=== PATIENT | female | born 1960 ===

== ENCOUNTER → 2020-08-10 07:46 | Outpatient (CLI) | payer OTHER, SELFPAY ==
--- NOTE | ~2020-08-10 | US_ITS ---
EXAMINATION: US right upper quadrant EXAM DATE: 08/10/2020 08:09 INDICATION: Epigastric pain TECHNIQUE: Multiple grayscale and Doppler images of the abdomen right upper quadrant were obtained (b y a technologist who performed the scan) and subsequently reviewed. There is no prior study for josue dodd. FINDINGS: The pancreatic head and body are normal in appearance. The pancreatic tail is not visualized. The l iver has normal echogenicity and contour. There are no focal liver lesions identified. There is no evidence of intrahepatic biliary duct dilation. Portal venous flow was seen in the hepatopedal, nor mal direction and has normal Doppler waveform. No right-sided hydronephrosis. Common bile duct measures 7 mm, which is normal. The gallbladder wall is normal in thickness, with ex pected amount of distention. No sonographic evidence of pericholecystic fluid. There is wall echo s hadow appearance from Stone filled gallbladder. Technologist performing exam reports patient did not demonstrate sonographic Perry's sign. Please note that this sign is less reliable in patients who have received pain medication. IMPRESSION: 1. Stone filled gallbladder. Reviewed, dictated and finalized at location B. [facility]
== END ==
PROVIDERS: PCP Internal Medicine; Visit Provider Internal Medicine
DX: R10.13 Epigastric pain (principal); K80.20 Calculus of gallbladder without cholecystitis without obstruction
CPT/HCPCS: 76705

== ENCOUNTER 2021-01-26 00:28 | Day surgery (SDC) | payer OTHER, SELFPAY ==
[2021-01-04 14:07] VITALS: BMI 33.0
[2021-01-26 06:24] VITALS: BP 121/83; PULSE 88; RESP 20; TEMP 36.4; O2SAT 98; BMI 32.0
[2021-01-26] MEDS: LACTATED RINGERS 1,000 ML 150 ML IV CONT (06:34)
--- NOTE | 2021-01-26 07:18 | WPDANESEPPF ---
Anes - Initial Pre Proc Eval Procedure: Operation Date: 01/26/21 07:30 Proposed Procedures p Screening Colonoscopy - Kemal Pope DO Date/Time: 01/26/21 07:18 Surgeon: Kemal Pope DO Pre Op Diagnosis: neoplasm screening, fam hx colon CA Patient Data Age: 60 Gender: F Height: 1.57 m Weight: 79.5 kg Last Vital Signs Temp 97.5 F L 01/26/21 06:24 Pulse 88 01/26/21 06:24 Resp 20 01/26/21 06:24 BP 121/83 01/26/21 06:24 Pulse Ox 98 01/26/21 06:24 Allergies Allergy/AdvReac Type Severity Reaction Status Date / Time No Known Allergies Allergy Verified 01/04/21 14:05 Home Medications Medication Instructions Recorded Confirmed Type ergocalciferol (vitamin D2) 1,250 mcg PO WEEKLY 01/04/21 01/26/21 History Patient hx anesthesia problems: none Family hx anesthesia problems: none PMFSH Past Medical History Medical History (Updated 01/26/21 @ 07:18 by Flip Lloyd MD) Obesity Family History Family History Other Family history of malignant neoplasm Hypertension Social History Social History Smoking status: Former smoker Tobacco type: cigarettes Smoking end date: 07/29/86 Alcohol intake: former Substance use: never Substance use type: does not use Living arrangements: with family Gender identity (if verbalized by the patient): Female Spiritual care concerns: No Anes - Eval Final PreProcedure Day of Procedure 01/26/21 07:18 Patient weight: obese Heart: regular rate and rhythm Lungs: clear to auscultation Airway: Mallampati scale class II Neurological: alert and oriented Last oral intake: >/= 8 hours ASA classification: II Emergent: no Anesthetic plan: proceed Anesthesia type and monitoring: general GIVS and standard monitoring Informed Consent: The patient's anesthetic plan and its attendant risks and benefits were discussed with the patient/family/POA. Questions were solicited and answers provided to the satisfaction of the patient/family/POA.
--- NOTE | 2021-01-26 07:27 | WPDGICN ---
GI Consult Note Consult date/time: 01/26/21 07:27 HPI: Reason for visit colonoscopy. This very pleasant lady seen in consultation request the primary physician. Impression: Screening and surveillance colonoscopy. The patient has a history of adenomatous colon polyps and family history colon cancer. Vitamin-D deficiency. Recommendation: Colonoscopy. History: This very pleasant lady has a negative GI review of systems. She has a history adenomatous colon polyps and a family history of colon cancer. She is here for screening and surveillance. Physical examination: General: very pleasant patient in no acute distress. HEENT: Head was normocephalic sclerae is clear mouth without masses neck was supple. Heart: Rate rhythm regular without S3 or S4. Lungs: CTA. Abdomen: Soft with no guarding or rigidity. Bowel sounds were active. Neurologic: Cranial nerves 2 through 12 intact. No focal defects. No clonus. Musculoskeletal system: Revealed no joint tenderness or swelling no muscle atrophy. Extremities: Reveal no significant edema. Skin: Warm and dry with normal turgor. Mental status: intact. Patient is alert and oriented. Review of Systems Review of Systems: All systems reviewed & are unremarkable except as noted in HPI and below PMFSH Past Medical History Medical History (Updated 01/26/21 @ 07:18 by Flip Lloyd MD) Obesity Family History Family History Other Family history of malignant neoplasm Hypertension Social History Social History Smoking status: Former smoker Tobacco type: cigarettes Smoking end date: 07/29/86 Alcohol intake: former Substance use: never Substance use type: does not use Living arrangements: with family Gender identity (if verbalized by the patient): Female Spiritual care concerns: No Meds Home Medications and Allergies Home Medications Medication Instructions Recorded Confirmed Type ergocalciferol (vitamin D2) 1,250 mcg PO WEEKLY 01/04/21 01/26/21 History Allergies Allergy/AdvReac Type Severity Reaction Status Date / Time No Known Allergies Allergy Verified 01/04/21 14:05 Vital Signs Vital Signs - 24 hr 01/26/21 06:24 Temperature 36.4 C L Pulse Rate 88 Respiratory Rate 20 Blood Pressure 121/83 Pulse Oximetry 98
[2021-01-26 07:48] VITALS: BP 104/69; PULSE 75; RESP 18; O2SAT 99
[2021-01-26 07:58] VITALS: BP 108/68; PULSE 66; RESP 17; O2SAT 98
[2021-01-26 08:08] VITALS: BP 96/69; PULSE 63; RESP 24; O2SAT 98
== END 2021-01-26 08:21 | disposition home or self-care (01) ==
PROVIDERS: PCP Internal Medicine; Visit Provider Internal Medicine Gastroenterology
PROC: 0DJD8ZZ Inspection of Lower Intestinal Tract, Via Natural or Artificial Opening Endoscopic (ICD-10-PCS; CPT 45378; principal; 2021-01-26 07:30)
DX: Z12.11 Encounter for screening for malignant neoplasm of colon (principal); K62.1 Rectal polyp; Z80.0 Family history of malignant neoplasm of digestive organs; E55.9 Vitamin D deficiency, unspecified; E66.9 Obesity, unspecified; Z68.32 Body mass index [BMI] 32.0-32.9, adult; Z87.891 Personal history of nicotine dependence
CPT/HCPCS: 45380; 88305; J2704; J7120

== ENCOUNTER 2024-02-03 14:32 | Outpatient (CLI) | payer OTHER, SELFPAY ==
--- NOTE | ~2024-02-03 | US_ITS ---
EXAMINATION: US pelvic complete w TV DATE: 02/03/2024 14:51 INDICATION: Hypertrophy of uterus. TECHNIQUE: Multiple transabdominal and transvaginal sonographic images of the pelvis were obtained. COMPARISON: None. FINDINGS: TRANSABDOMINAL ULTRASOUND: The uterus measures 7.7 x 4.5 x 6.2 cm. There is no free fluid in the pelvis. TRANSVAGINAL ULTRASOUND: The endometrial complex measures 5 mm in thickness. There is a 1.1 cm subserosal fibroid. There is a 2.2 cm subserosal fibroid. The ovaries are not visualized. IMPRESSION: 1. Uterine fibroids. Reviewed, dictated and finalized at location E. IMPRESSION: 1. Uterine fibroids.
== END 2024-02-03 14:33 ==
LOC: MICIMG 14:33
PROVIDERS: PCP Nurse Practitioner Family; Visit Provider Nurse Practitioner Family
DX: D25.2 Subserosal leiomyoma of uterus (principal)
CPT/HCPCS: 76830; 76856